=== PATIENT | male | born 1965 | race American Indian/Alaskan Native ===

== ENCOUNTER 2019-12-02 11:55 | Emergency (ER) | payer SELFPAY | END 2019-12-02 13:00 | LOC: ED 11:55 | DX: R10.9 Unspecified abdominal pain (principal); Z53.21 Procedure and treatment not carried out due to patient leaving prior to being seen by health care provider | CPT/HCPCS: 93005; 93010 ==

== ENCOUNTER 2019-12-03 16:53 | Emergency (ER) | payer MEDICARE ==
--- NOTE | 2019-12-03 17:11 | Event Note ---
ED Screening Note Date of service: 12/03/19 Time: 17:09 ED Screening Note: 53 y o male presents with abd pain with blood in stool states worsening also cc of neck pain This initial assessment/diagnostic orders/clinical plan/treatment(s) is/are subject to change based on patients health status, clinical progression and re- assessment by fellow clinical providers in the ED. Further treatment and workup at subsequent clinical providers discretion. Patient/guardian urged not to elope from the ED as their condition may be serious if not clinically assessed and managed. Initial orders include: labs main side eval
[2019-12-03 17:32] LABS: Basophils % (Auto) 0.4 % (0.0-1.8); Eosinophils # (Auto) 0.3 K/mm3 (0.0-0.4); Eosinophils % (Auto) 4.7 % (0.0-4.3); Hematocrit 38.7 % (35.5-45.6); Hemoglobin 12.9 gm/dl (11.8-15.2); Lymphocytes # (Auto) 1.5 K/mm3 (1.2-5.4); Lymphocytes % (Auto) 23.2 % (13.4-35.0); Mean Corpuscular HGB Conc 33 % (32-34); Mean Corpuscular Volume 91 fl (84-94); Monocytes # (Auto) 0.4 K/mm3 (0.0-0.8); Monocytes % (Auto) 6.8 % (0.0-7.3); Platelet Count 173 K/mm3 (140-440); Red Blood Count 4.27 M/mm3 (3.65-5.03); Red Cell Distribution Width 14.9 % (13.2-15.2)
[2019-12-03 17:55] LABS: Alanine Aminotransferase 19 units/L (7-56); Albumin 3.8 g/dL (3.9-5); BUN/Creatinine Ratio 11; Blood Urea Nitrogen 11 mg/dL (9-20); Calcium 9.1 mg/dL (8.4-10.2); Hemolysis Index 5
[2019-12-03 18:07] LABS: Partial Thromboplastin Time 29.9 Sec. (24.2-36.6)
--- NOTE | 2019-12-03 18:14 | Emergency Department Report ---
HPI - General Chief Complaint: GI Bleed Time Seen by Provider: 12/03/19 17:40 - HPI HPI: 53-year-old -[place] male presents to the emergency department with a complaint of constipation, blood in his stool and testicular/scrotal pain and swelling. Patient also complains of some type of a "knot" to the left upper chest. This, as well as the constipation, has been going on for the past 8 months. More recently the patient has noticed that his stool is dark and concerning for blood. The patient says that he has difficulty having a bowel movement if he just sits on the toilet and tries to squeeze. However, the patient will squeeze and tug on his scrotum and it will cause him to have a bowel movement. The patient also feels like there is stool running throughout his legs and up into the chest and neck. He realizes that this is unlikely but says that it is a soreness sensation and "that is what it feels like." He has a past medical history of previous brain aneurysm. The patient just moved here from [place] about 2 weeks ago and therefore does not have a local primary care physician. He has taken some laxatives in the past that have helped with his constipation. ED Past Medical Hx - Past Medical History Additional medical history: aneurysm in 2006 - Social History Smoking Status: Current Some Day Smoker Substance Use Type: None, Marijuana - Medications Home Medications: Home Medications Medication Instructions Recorded Confirmed Last Taken Type HYDROcodone/APAP 5-325 [Harrison 1 each PO Q6HR PRN #20 tablet 02/12/14 Unknown Rx 5/325 mg] Sulfamethoxazole/Trimethoprim 1 each PO BID #14 tablet 12/03/19 Unknown Rx [Bactrim DS TAB] diphenhydrAMINE [Benadryl CAP] 25 mg PO Q8HR PRN #15 capsule 12/03/19 Unknown Rx ED Review of Systems ROS: Stated complaint: BLOOD IN STOOL/STOMACH PAIN Other details as noted in HPI Comment: All other systems reviewed and negative Constitutional: denies: chills, fever Eyes: denies: eye pain, vision change ENT: denies: ear pain, throat pain Respiratory: denies: cough, shortness of breath Cardiovascular: denies: chest pain, palpitations Gastrointestinal: abdominal pain, constipation. denies: vomiting Genitourinary: denies: dysuria, discharge Musculoskeletal: myalgia. denies: back pain Skin: rash. denies: pruritus Neurological: denies: headache, weakness Physical Exam - Physical Exam Vital Signs: Vital Signs 12/03/19 12/03/19 16:57 17:46 Temperature 98.4 F 98.2 F Pulse Rate 71 Respiratory 20 18 Rate Blood Pressure 136/84 Blood Pressure 142/86 [Right] O2 Sat by Pulse 99 100 Oximetry Physical Exam: GENERAL: The patient is well-developed well-nourished. HENT: Normocephalic. Atraumatic. Patient has moist mucous membranes. EYES: Extraocular motions are intact. NECK: Supple. Trachea is midline. CHEST/LUNGS: Clear to auscultation. There is no respiratory distress noted. There is some mobile subcutaneous nodular lesion to the left upper chest wall that is about 1 inch in diameter. HEART/CARDIOVASCULAR: Regular. There is no tachycardia. There is no murmur. ABDOMEN: Abdomen is soft, nontender. Patient has normal bowel sounds. There is no abdominal distention. SKIN: Skin is warm and dry. Patient has multiple excoriated small ulcerated papules or wounds, some with scabs forming, going down the bilateral lower extremities. No weeping, bleeding, drainage or discharge. NEURO: The patient is awake, alert, and oriented. The patient is cooperative. The patient has no focal neurologic deficits. Normal speech. MUSCULOSKELETAL: There is no tenderness or deformity. There is no limitation range of motion. There is no evidence of acute injury. : There is some tenderness to palpation to the scrotum. No palpable hernia. ED Course Vital Signs 12/03/19 12/03/19 16:57 17:46 Temperature 98.4 F 98.2 F Pulse Rate 71 Respiratory 20 18 Rate Blood Pressure 136/84 Blood Pressure 142/86 [Right] O2 Sat by Pulse 99 100 Oximetry ED Medical Decision Making - Lab Data Result diagrams: 12/03/19 17:16 12/03/19 17:16 - Radiology Data Radiology results: report reviewed, image reviewed interpreted by me: Chest x-ray does not show any acute process. There are no pleural effusions, obvious pneumonia and there is no pneumothorax. CT ABDOMEN AND PELVIS WITH CONTRAST INDICATION / CLINICAL INFORMATION: Abd pain, Constipation. TECHNIQUE: Axial CT images were obtained through the abdomen and pelvis after 100 cc Omnipaque 300 milligrams percent IV contrast. All CT scans at this location are performed using CT dose reduction for ALARA by means of automated exposure control. COMPARISON: None available. FINDINGS: A paucity of fat limits the diagnostic accuracy LOWER CHEST: No significant abnormality. LIVER: No significant abnormality. GALLBLADDER: No significant abnormality. BILE DUCTS: No significant abnormality. PANCREAS: No significant abnormality. SPLEEN: No significant abnormality. ADRENALS: No significant abnormality. RIGHT KIDNEY and URETER: No significant abnormality. LEFT KIDNEY and URETER: No significant abnormality. STOMACH and SMALL BOWEL: No significant abnormality. COLON: No significant abnormality. APPENDIX: No significant abnormality. PERITONEUM: No free fluid. No free air. No fluid collection. LYMPH NODES: No significant adenopathy. AORTA and ARTERIES: No significant abnormality. IVC and VEINS: No significant abnormality. URINARY BLADDER: No significant abnormality. REPRODUCTIVE ORGANS: No significant abnormality. ADDITIONAL FINDINGS: None. SKELETAL SYSTEM: No significant abnormality. IMPRESSION: 1. No significant abnormality. Scrotal ultrasound INDICATION: Bilateral testicular pain FINDINGS: The right testis measures 40.6 x 2.5 x 1.7 cm and shows homogeneous echogenicity without intra or extratesticular mass. There is good arterial flow to the right testis with no evidence of torsion. No epididymitis or hydrocele seen either. The left testis measures 4.6 x 1.8 x 3.1 cm and also shows homogeneous echogenicity without mass or torsion. Left epididymis is unremarkable as well. Again no hydrocele is seen. No scrotal edema. No significant abnormality. IMPRESSION: Negative scrotal ultrasound. - Medical Decision Making This patient presents to the emergency department with a complaint of having difficulty passing a bowel movement unless he squeezes his testicles or groin or takes multiple laxatives. He also complains of some rash or ulcerating lesions going down the bilateral lower extremities. Lastly he complains of some knot or nodule to the left upper chest wall. Most of these complaints have been going on for close to 8 months, if not longer. On examination his abdomen is soft, nondistended and nontoxic in appearance. He has some reproducible tenderness to palpation to the scrotum and testicles but there is no hernia or any obvious abnormalities. The lesions of the leg do appear to be small excoriated ulcerating wounds but there is no erythema, bleeding, drainage or discharge. They mostly appear as if the patient had some pruritic papules that he has excoriated down. His labs have been unremarkable including CBC, metabolic panel, urinalysis. A scrotal/testicular ultrasound was done that was unremarkable. A CT scan of the abdomen and pelvis with IV contrast was also done that did not show any acute process or etiology of the patient's symptoms. A chest x-ray was done that does not show any radiopaque soft tissue foreign body or lesion, any pneumothorax, pneumonia or pleural effusions, or any other acute process. His vital signs have been stable throughout his ED course including being afebrile. Overall the patient appears safe for discharge home at this time. He has been given referrals for primary care, urology, gastroenterology and dermatology. He will be placed on some antibiotics and was given Benadryl for his itching. The patient has been instructed to return to the emergency department with any worsening of his symptoms or any acute distress. - Differential Diagnosis Inguinal hernia, testicular torsion, dermatitis, cellulitis Critical Care Time: No Critical care attestation.: If time is entered above; I have spent that time in minutes in the direct care of this critically ill patient, excluding procedure time. ED Disposition Clinical Impression: Dermatitis, Scrotal pain, Difficult bowel movements, Nodule of anterior chest wall Disposition: DC-01 TO HOME OR SELFCARE Is pt being admited?: No Condition: Stable Instructions: Acute Rash (ED), Testicle Pain (ED), Abdominal Pain (ED) Additional Instructions: Please follow-up with a primary care physician in the next few days. I have given you a referral for a local urologist, Dr. Rivera, to follow-up regarding your testicular/scrotal pain. I have given you a referral for [facility] to follow-up regarding your abdominal pains and difficulty with bowel movements. I have given you a referral for a local currency examiner, Dr. Neff, to follow-up regarding your rash and itchy skin. Please return to the emergency department with any worsening of your symptoms or any acute distress. You have been prescribed a medication that is sedating and therefore should not be taken prior to driving, working, and responsible for children and in no way should be mixed with alcohol of any quantity. Prescriptions: Sulfamethoxazole/Trimethoprim [Bactrim DS TAB] 1 each PO BID #14 tablet diphenhydrAMINE [Benadryl CAP] 25 mg PO Q8HR PRN #15 capsule PRN Reason: Itching Referrals: AVELINO RIVERA MD [Staff Physician] - 2-3 Days HARRIS NEFF MD [Staff Physician] - 2-3 Days [facility] [Provider Group] - 2-3 Days [facility] [Outside] - 2-3 Days Forms: Accompanied Note, Work/School Release Form(ED) Time of Disposition: 21:23
--- NOTE | 2019-12-03 19:06 | Cat Scan Report ---
CT ABDOMEN AND PELVIS WITH CONTRAST INDICATION / CLINICAL INFORMATION: Abd pain, Constipation. TECHNIQUE: Axial CT images were obtained through the abdomen and pelvis after 100 cc Omnipaque 300 milligrams pe rcent IV contrast. All CT scans at this location are performed using CT dose reduction for ALARA by means of automated exposure control. COMPARISON: None available. FINDINGS: A paucity of fat limits the diagnostic accuracy LOWER CHEST: No significant abnormality. LIVER: No significant abnormality. GALLBLADDER: No significant abnormality. BILE DUCTS: No significant abnormality. PANCREAS: No significant abnormality. SPLEEN: No significant abnormality. ADRENALS: No significant abnormality. RIGHT KIDNEY and URETER: No significant abnormality. LEFT KIDNEY and URETER: No significant abnormality. STOMACH and SMALL BOWEL: No significant abnormality. COLON: No significant abnormality. APPENDIX: No significant abnormality. PERITONEUM: No free fluid. No free air. No fluid collection. LYMPH NODES: No significant adenopathy. AORTA and ARTERIES: No significant abnormality. IVC and VEINS: No significant abnormality. URINARY BLADDER: No significant abnormality. REPRODUCTIVE ORGANS: No significant abnormality. ADDITIONAL FINDINGS: None. SKELETAL SYSTEM: No significant abnormality. IMPRESSION: 1. No significant abnormality. Signer Name: Josafat Giordano MD Signed: 12/03/2019 7:01 PM Workstation Name: [id number]
[2019-12-03 19:11] VITALS: BP 121/77
--- NOTE | 2019-12-03 19:33 | XRay Report ---
CHEST 1 VIEW 12/03/2019 6:31 PM INDICATION / CLINICAL INFORMATION: chest nodule / growth. COMPARISON: None available. FINDINGS: SUPPORT DEVICES: None. HEART / MEDIASTINUM: No significant abnormality. LUNGS / PLEURA: No significant pulmonary or pleural abnormality. No pulmonary nodule identified. No p neumothorax. ADDITIONAL FINDINGS: No significant additional findings. IMPRESSION: 1. No acute findings. Signer Name: John Brooks MD Signed: 12/03/2019 7:29 PM Workstation Name: [id number]
[2019-12-03] MEDS ORDERED: diphenhydrAMINE 50 MG/ML VIAL IV ONE (19:57)
[2019-12-03] MEDS ORDERED: diphenhydrAMINE 50 MG/ML VIAL ONE (20:00)
--- NOTE | 2019-12-03 20:57 | Ultrasound Report ---
Scrotal ultrasound INDICATION: Bilateral testicular pain FINDINGS: The right testis measures 40.6 x 2.5 x 1.7 cm and shows homogeneous echogenicity without in tra or extratesticular mass. There is good arterial flow to the right testis with no evidence of tors ion. No epididymitis or hydrocele seen either. The left testis measures 4.6 x 1.8 x 3.1 cm and also s hows homogeneous echogenicity without mass or torsion. Left epididymis is unremarkable as well. Again no hydrocele is seen. No scrotal edema. No significant abnormality. IMPRESSION: Negative scrotal ultrasound. Signer Name: Bentley Dumont MD Signed: 12/03/2019 8:53 PM Workstation Name: [id number]
[2019-12-03 21:10] LABS: Bilirubin,Urine NEG (Negative); Blood,Urine NEG (Negative); Color,Urine Straw (Yellow); Protein,Urine <15 mg/dL mg/dL (Negative); Urobilinogen,Urine < 2.0 mg/dL (<2.0); WBC,Urine < 1.0 /HPF (0.0-6.0)
== END 2019-12-03 22:00 | disposition home or self-care (01) ==
LOC: ED 16:53
DX: L30.9 Dermatitis, unspecified (principal); N50.82 Scrotal pain; R07.89 Other chest pain; F17.200 Nicotine dependence, unspecified, uncomplicated; F12.10 Cannabis abuse, uncomplicated
CPT/HCPCS: 36415; 71045; 74177; 80053; 81001; 83690; 85025; 85610; 85730; 86850; 86900; 86901; 93975; 96374; 99284; J1200; Q9967